=== PATIENT | male | born 1980 | race African-American/Black ===

== ENCOUNTER 2017-04-05 17:20 | Inpatient (IN) | payer SELFPAY ==
[2017-04-05] MEDS ORDERED: NORMAL SALINE 1000 ML 1,000 ML IV PRN (18:03)
[2017-04-05] MEDS ORDERED: ACETAMINOPHEN 325 MG TABLET PO ONE (18:06)
[2017-04-05] MEDS ORDERED: HYDROMORPHONE HCL INJ/PF 2 MG/ML AMPULE IV ONE ×2 (18:06→19:06)
[2017-04-05] MEDS ORDERED: ONDANSETRON HCL INJ/PF 4 MG/2 ML SDV IV ONE (18:06)
--- NOTE | 2017-04-05 18:07 | ER Document Report ---
ED Medical Screen (RME) - General Chief Complaint: Abdominal Pain Stated Complaint: ABDOMINAL PAIN Time Seen by Provider: 04/05/17 18:03 Mode of Arrival: Ambulatory Information source: Patient Notes: 37-year-old male presents with complaints of right lower quadrant abdominal pain fever nausea patient last ate at noon I have greeted and performed a rapid initial assessment of this patient. A comprehensive ED assessment and evaluation of the patient, analysis of test results and completion of the medical decision making process will be conducted by additional ED providers. PHYSICAL EXAMINATION: GENERAL: Febrile HEAD: Atraumatic, normocephalic. EYES: Pupils equal round extraocular movements intact, conjunctiva are normal. ENT: Nares patent NECK: Normal range of motion LUNGS: No respiratory distress Abdominal: Tender with guarding right lower quadrant Musculoskeletal: Normal range of motion NEUROLOGICAL: Normal speech, normal gait. PSYCH: Normal mood, normal affect. SKIN: Warm, Dry, normal turgor, no rashes or lesions noted. TRAVEL OUTSIDE OF THE [place] IN LAST 30 DAYS: No - Related Data Allergies/Adverse Reactions: No Known Allergies Allergy (Unverified 04/05/17 17:27) Past Medical History - Social History Frequency of alcohol use: None Drug Abuse: None Renal/ Medical History: Denies: Hx Peritoneal Dialysis Physical Exam - Vital signs Vitals: Temp Pulse Resp BP Pulse Ox 100.2 F 93 24 H 147/78 H 94 04/05/17 17:29 04/05/17 17:29 04/05/17 17:29 04/05/17 17:29 04/05/17 17:29 Course - Vital Signs Vital signs: Temp Pulse Resp BP Pulse Ox 100.2 F 93 24 H 147/78 H 94 04/05/17 17:29 04/05/17 17:29 04/05/17 17:29 04/05/17 17:29 04/05/17 17:29
[2017-04-05 18:40] LABS: ABSOLUTE MONOCYTES (AUTO) 0.8 10^3/uL (0.1-1.4); ABSOLUTE NEUT (AUTO) 11.4 10^3/uL (1.7-8.2); BASOPHILS % (AUTO) 0.2 % (0-2); EOSINOPHILS % (AUTO) 0.1 % (0-6); HEMATOCRIT 49.5 % (37.9-51.0); HEMOGLOBIN 16.6 g/dL (13.5-17.0); HGB HCT DIFFERENCE 0.3; LYMPHOCYTES % (AUTO) 7.8 % (13-45); MEAN CORPUSCULAR HEMOGLOBIN 27.5 pg (27.0-33.4); MEAN CORPUSCULAR HGB CONC 33.6 g/dL (32.0-36.0); MEAN CORPUSCULAR VOLUME 82 fl (80-97); MONOCYTES % (AUTO) 5.7 % (3-13); RED BLOOD COUNT 6.04 10^6/uL (4.35-5.55); RED CELL DISTRIBUTION WIDTH 15.9 % (11.5-14.0); SEGMENTED NEUTROPHILS % (AUTO) 86.2 % (42-78); WHITE BLOOD COUNT 13.2 10^3/uL (4.0-10.5)
[2017-04-05] MEDS: NORMAL SALINE 1000 ML 1,000 ML IV PRN ×2 (19:01→21:04)
[2017-04-05 19:02] LABS: ALANINE AMINOTRANSFERASE 29 U/L (21-72); ALBUMIN 4.7 g/dL (3.5-5.0); ALKALINE PHOSPHATASE 67 U/L (38-126); ANION GAP 13 (5-19); ASPARTATE AMINO TRANSFERASE 24 U/L (17-59); BILIRUBIN,DIRECT 0.6 mg/dL (0.0-0.4); BILIRUBIN,TOTAL 1.5 mg/dL (0.2-1.3); BLOOD UREA NITROGEN 12 mg/dL (7-20); CALCIUM 9.6 mg/dL (8.4-10.2); CARBON DIOXIDE 28 mmol/L (22-30); CHLORIDE 97 mmol/L (98-107); CREATININE RESULT 1.09 mg/dL (0.52-1.25); GLUCOSE 141 mg/dL (75-110); POTASSIUM 4.1 mmol/L (3.6-5.0); SODIUM 138.1 mmol/L (137-145)
[2017-04-05] MEDS ORDERED: AMPICILLIN SOD/SULBACTAM 3 GM VIAL IV ONE (19:19)
[2017-04-05 20:38] LABS: APPEARANCE,URINE CLEAR; BILIRUBIN,URINE NEGATIVE (NEGATIVE); GLUCOSE, URINE NEGATIVE (NEGATIVE); KETONES,URINE 20 mg/dL (NEGATIVE); LEUKOCYTE ESTERASE,URINE NEGATIVE (NEGATIVE); NITRITE,URINE NEGATIVE (NEGATIVE); PROTEIN,URINE NEGATIVE (NEGATIVE)
--- NOTE | 2017-04-05 21:48 | RADIOLOGY REPORT (SQ) ---
EXAM DESCRIPTION: CT ABD/PELVIS WITH IV ORAL COMPLETED DATE/TIME: 04/05/2017 9:04 pm REASON FOR STUDY: RLQ pin fever COMPARISON: None. TECHNIQUE: CT scan of the abdomen and pelvis performed using helical scanning technique with dynamic intravenous contrast injection and oral contrast. Images reviewed with lung, soft tissue, and bone w indows. Reconstructed coronal and sagittal MPR images reviewed. Delayed images for evaluation of the urinary system also acquired. All images stored on PACS. All CT scanners at this facility use dose modulation, iterative reconstruction, and/or weight based d osing when appropriate to reduce radiation dose to as low as reasonably achievable (ALARA). [facility]: Dose Right [facility]: CareDose [facility]: Dose Right [facility]: Teradose 4D [facility]: Appian CONTRAST TYPE AND DOSE: contrast/concentration: Isovue 370.00 mg/ml; Total Contrast Delivered: 100.0 ml; Total Saline Delivered: 45.0 ml RENAL FUNCTION: None required. The patient is less than 50 years old. RADIATION DOSE: Up-to-date CT equipment and radiation dose reduction techniques were employed. CTDIv ol: 29.6 - 30.0 mGy. DLP: 3734 mGy-cm.. LIMITATIONS: None. FINDINGS: LOWER CHEST: There is patchy airspace consolidation in the right lower lobe which could re present atelectatic changes or a basilar infiltrate. No pleural effusions are identified. LIVER: Normal size. No masses. No dilated ducts. SPLEEN: Normal size. No focal lesions. PANCREAS: No masses. No significant calcifications. No adjacent inflammation or peripancreatic fluid collections. Pancreatic duct not dilated. GALLBLADDER: No identified stones by CT criteria. No inflammatory changes to suggest cholecystitis. ADRENAL GLANDS: No significant masses or asymmetry. RIGHT KIDNEY AND URETER: No solid masses. No significant calcifications. No hydronephrosis or hyd roureter. LEFT KIDNEY AND URETER: No solid masses. No significant calcifications. No hydronephrosis or hydr oureter. AORTA AND VESSELS: No aneurysm. No dissection. Renal arteries, SMA, celiac without stenosis. RETROPERITONEUM: No retroperitoneal adenopathy, hemorrhage or masses. BOWEL AND PERITONEAL CAVITY: There are diffuse inflammatory changes in the right lower quadrant which extends medially and inferiorly into the pelvis. There is thickening of the ni of the terminal i leum as well as thickening of the ni of the adjacent sigmoid colon. There are enlarged mesenteric lymph nodes in right lower quadrant. APPENDIX: There is dilatation of the appendix with thickening of the ni of the appendix. PELVIS: No mass. No free fluid. Normal bladder. ABDOMINAL WALL: No masses. No hernias. BONES: No significant or acute findings. OTHER: No other significant finding. IMPRESSION: Diffuse inflammatory changes in the right lower quadrant as noted above which extends me dially and inferiorly into the pelvis. There is thickening of the ni of the terminal ileum as wel l as thickening of the ni of the adjacent sigmoid colon. There is dilatation of the appendix with thickening of the ni of the appendix. There are enlarged mesenteric lymph nodes in the right low er quadrant. The appearance is most consistent with an appendicitis with secondary involvement of th e terminal ileum and sigmoid colon however the possibility of a terminal ileitis with secondary invol vement of the appendix and sigmoid colon cannot be completely excluded. Clinical correlation is gem mmended. Other findings as noted above TECHNICAL DOCUMENTATION: JOB ID: [id number] Quality ID # [id number]: Final reports with documentation of one or more dose reduction techniques (e.g., Au tomated exposure control, adjustment of the mA and/or kV according to patient size, use of iterative reconstruction technique) 2010 [employer]- All Rights Reserved
--- NOTE | 2017-04-05 22:11 | ER Document Report ---
ED General - General Chief Complaint: Abdominal Pain Stated Complaint: ABDOMINAL PAIN Time Seen by Provider: 04/05/17 18:03 Mode of Arrival: Ambulatory TRAVEL OUTSIDE OF THE [place] IN LAST 30 DAYS: No - HPI Patient complains to provider of: Right lower quadrant abdominal pain Notes: Patient coming in for right lower quadrant abdominal pain ongoing for the last 3 days worse this afternoon. Patient states slight fever at home however no T- max was taken. Patient also states nausea vomiting no diarrhea last meal was at noon patient states he had chicken and pastry no difficulty eating. Denies any trauma denies any other past medical history. - Related Data Allergies/Adverse Reactions: No Known Allergies Allergy (Unverified 04/05/17 17:27) Past Medical History - General Information source: Patient - Social History Smoking Status: Never Smoker Frequency of alcohol use: None Drug Abuse: None Family History: Reviewed & Not Pertinent Patient has suicidal ideation: No Renal/ Medical History: Denies: Hx Peritoneal Dialysis Review of Systems - Review of Systems Constitutional: No symptoms reported EENT: No symptoms reported Cardiovascular: No symptoms reported Respiratory: No symptoms reported Gastrointestinal: Abdominal pain Genitourinary: No symptoms reported Male Genitourinary: No symptoms reported Musculoskeletal: No symptoms reported Skin: No symptoms reported Hematologic/Lymphatic: No symptoms reported Neurological/Psychological: No symptoms reported Physical Exam - Vital signs Vitals: Temp Pulse Resp BP Pulse Ox 100.2 F 93 24 H 147/78 H 94 04/05/17 17:29 04/05/17 17:29 04/05/17 17:29 04/05/17 17:29 04/05/17 17:29 Interpretation: Normal - General General appearance: Appears well, Alert - HEENT Head: Normocephalic, Atraumatic Eyes: Normal Pupils: PERRL - Respiratory Respiratory status: No respiratory distress Chest status: Nontender Breath sounds: Normal Chest palpation: Normal - Cardiovascular Rhythm: Regular Heart sounds: Normal auscultation Murmur: No - Abdominal Inspection: Normal Distension: No distension Bowel sounds: Normal Tenderness: Tender - Right lower quadrant tenderness moderate to palpation, McBurney's point, Guarding. No: Rebound Organomegaly: No organomegaly - Back Back: Normal, Nontender - Extremities General upper extremity: Normal inspection, Nontender, Normal color, Normal ROM , Normal temperature General lower extremity: Normal inspection, Nontender, Normal color, Normal ROM , Normal temperature, Normal weight bearing. No: Suzette's sign - Neurological Neuro grossly intact: Yes Cognition: Normal Orientation: AAOx4 [place] Coma Scale Eye Opening: Spontaneous [place] Coma Scale Verbal: Oriented [place] Coma Scale Motor: Obeys Commands [place] Coma Scale Total: 15 Speech: Normal Motor strength normal: LUE, RUE, LLE, RLE Sensory: Normal - Psychological Associated symptoms: Normal affect, Normal mood - Skin Skin Temperature: Warm Skin Moisture: Dry Skin Color: Normal Course - Re-evaluation Re-evalutation: 04/05/17 22:[address] scan returned showing signs of appendicitis. Also concern for terminal ileitis or inflammatory bowel disease process however patient symptoms started 3 days ago more consistent with acute appendicitis and local inflammation. The entire read of the CAT scan was given to the surgeon supervisor purification will admit the patient overnight plan is for surgery in the morning orders given over phone to charge nurse - Vital Signs Vital signs: Temp Pulse Resp BP Pulse Ox 100.2 F 93 24 H 147/78 H 94 04/05/17 17:29 04/05/17 17:29 04/05/17 17:29 04/05/17 17:29 04/05/17 17:29 - Laboratory Result Diagrams: 04/05/17 18:20 04/05/17 18:20 Laboratory results interpreted by me: 04/05/17 04/05/17 04/05/17 18:20 18:20 20:25 WBC 13.2 H RBC 6.04 H RDW 15.9 H Seg Neutrophils % 86.2 H Lymphocytes % 7.8 L Absolute Neutrophils 11.4 H Chloride 97 L Glucose 141 H Total Bilirubin 1.5 H Direct Bilirubin 0.6 H Urine Ketones 20 H Urine Urobilinogen 4.0 H Discharge - Discharge Clinical Impression: Appendicitis Qualifiers: Appendicitis type: acute appendicitis Acute appendicitis type: with localized peritonitis Qualified Code(s): K35.3 - Acute appendicitis with localized peritonitis Condition: Good Disposition: ADMITTED INPATIENT Admitting Provider: Surgicalist - [facility] Unit Admitted: Surgical Floor Referrals: LOCALMD,NO [Primary Care Provider] - Follow up as needed
[2017-04-05] MEDS ORDERED: AMPICILLIN SOD/SULBACTAM 3 GM VIAL IV PRN (22:25)
[2017-04-05] MEDS ORDERED: ACETAMINOPHEN 325 MG TABLET PO PRN (22:27)
[2017-04-05] MEDS ORDERED: MORPHINE SULFATE 10 MG/ML INJ INJ PRN (22:28)
[2017-04-05] MEDS: RINGERS SOLUTION,LACTATED 1,000 ML IV PRN (22:56)
[2017-04-05] MEDS: MORPHINE SULFATE 10 MG/ML INJ IV PRN (22:56)
[2017-04-05] MEDS: AMPICILLIN SODIUM/SULBACTAM NA 3 GM in NORMAL SALINE 100 ML IV SCH (23:46)
[2017-04-06] MEDS ORDERED: DEXTROSE 50%-WATER 25 GM/50 ML DISP.SYRIN IV PRN ×2 (00:38)
[2017-04-06] MEDS ORDERED: DEXTROSE 40% GEL 15 GM TUBE PO PRN ×2 (00:38)
[2017-04-06] MEDS ORDERED: GLUCAGON,HUMAN RECOMB 1 MG INJ SUBCUT PRN (00:38)
[2017-04-06] MEDS: MORPHINE SULFATE 10 MG/ML INJ IV PRN ×4 (02:03→21:04)
[2017-04-06] MEDS ORDERED: AMPICILLIN SOD/SULBACTAM 3 GM VIAL ONE (03:08)
[2017-04-06 04:48] LABS: HEMATOCRIT 43.7 % (37.9-51.0); HEMOGLOBIN 14.9 g/dL (13.5-17.0); MEAN CORPUSCULAR HEMOGLOBIN 27.8 pg (27.0-33.4); MEAN CORPUSCULAR HGB CONC 34.1 g/dL (32.0-36.0); MEAN CORPUSCULAR VOLUME 81 fl (80-97); RED BLOOD COUNT 5.38 10^6/uL (4.35-5.55); RED CELL DISTRIBUTION WIDTH 15.6 % (11.5-14.0); WHITE BLOOD COUNT 14.9 10^3/uL (4.0-10.5)
[2017-04-06] MEDS: AMPICILLIN SODIUM/SULBACTAM NA 3 GM in NORMAL SALINE 100 ML IV SCH ×4 (05:07→23:39)
--- NOTE | 2017-04-06 07:37 | PDOC H&P ---
History of Present Illness Admission Date/PCP: 04/05/17 22:14 Patient complains of: Abdominal pain History of Present Illness: ANGELA FOURNIER is a 37 year old male who presented to the ER last night with progressively worsening abdominal pain. This initially started on Wednesday and was recently in progressive worsening with associated fever lack of appetite became worrisome. Currently denying any fever chest pain shortness of breath nausea vomiting diarrhea. Patient's last bowel movement was Wednesday prior to the onset of symptoms. Patient's last oral intake was yesterday afternoon. ER workup revealed leukocytosis and CT findings consistent with acute appendicitis. Past Medical History Medical History: Other - HTN Pulmonary Medical History: Reports: None GI Medical History: Reports: None Psychiatric Medical History: Denies: Depression Past Surgical History Past Surgical History: Reports: Other - [place] tooth extraction Social History Information Source: Patient Lives with: Spouse/Significant other Smoking Status: Never Smoker Frequency of Alcohol Use: None Hx Recreational Drug Use: No Hx Prescription Drug Abuse: No Family History Family History: Reviewed & Not Pertinent Parental Family History Reviewed: Yes - Mother with HTN and DM Children Family History Reviewed: Yes Sibling(s) Family History Reviewed.: Yes Medication/Allergy Home Medications: No Home Medications 04/05/17 Allergies/Adverse Reactions: No Known Allergies Allergy (Unverified 04/05/17 17:27) Review of Systems Constitutional: ABSENT: chills, fever(s) - Noted elevated temp on admission none otherwise, headache(s), weight gain, weight loss Nose, Mouth, and Throat: ABSENT: sore throat Cardiovascular: ABSENT: chest pain, dyspnea on exertion Respiratory: ABSENT: cough, dyspnea Gastrointestinal: PRESENT: abdominal pain - RLQ focal. ABSENT: dysphagia, heartburn, melena, nausea, vomiting Genitourinary: PRESENT: dysuria - resolved after admission Neurological: ABSENT: abnormal gait, abnormal speech, confusion, dizziness, focal weakness, syncope Physical Exam Vital Signs: Temp Pulse Resp BP Pulse Ox 98.9 F 102 H 20 136/78 H 92 04/06/17 00:17 04/06/17 00:17 04/06/17 00:17 04/06/17 00:17 04/06/17 00:17 Intake & Output 04/05/17 04/06/17 04/07/17 06:59 06:59 06:59 Intake Total 705 Balance 705 General appearance: PRESENT: no acute distress, obese Head exam: PRESENT: atraumatic, normocephalic Eye exam: PRESENT: conjunctiva pink Mouth exam: PRESENT: moist, neck supple Neck exam: ABSENT: lymphadenopathy, thyromegaly, tracheal deviation Respiratory exam: PRESENT: clear to auscultation mamie Cardiovascular exam: PRESENT: RRR GI/Abdominal exam: PRESENT: guarding - Focal, tenderness - RLQ. ABSENT: diminished bowel sounds, distended, firm, hernia Extremities exam: PRESENT: full ROM. ABSENT: calf tenderness, clubbing, pedal edema Results Laboratory Results: 04/06/17 04:11 04/06/17 04:11 WBC 14.9 H RBC 5.38 Hgb 14.9 Hct 43.7 MCV 81 MCH 27.8 MCHC 34.1 RDW 15.6 H Plt Count 170 Impressions: Abdomen/Pelvis CT 04/05/17 00:00 IMPRESSION: Diffuse inflammatory changes in the right lower quadrant as noted above which extends medially and inferiorly into the pelvis. There is thickening of the ni of the terminal ileum as well as thickening of the ni of the adjacent sigmoid colon. There is dilatation of the appendix with thickening of the ni of the appendix. There are enlarged mesenteric lymph nodes in the right lower quadrant. The appearance is most consistent with an appendicitis with secondary involvement of the terminal ileum and sigmoid colon however the possibility of a terminal ileitis with secondary involvement of the appendix and sigmoid colon cannot be completely excluded. Clinical correlation is recommended. Other findings as noted above Assessment & Plan - Diagnosis (1) Appendicitis Qualifiers: Appendicitis type: acute appendicitis Acute appendicitis type: with localized peritonitis Qualified Code(s): K35.3 - Acute appendicitis with localized peritonitis Is this a current diagnosis for this admission?: Yes Plan: NPO OR for laparoscopic appendectomy Pain control Pulmonary toilet Resuscitate Continue IV antibiotics - improved symptoms
[2017-04-06] MEDS ORDERED: GLYCOPYRROLATE INJ 0.4 MG/2 ML VIAL ONE (07:43)
[2017-04-06] MEDS ORDERED: DEXAMETHASONE SOD PHOSPHATE INJ 4 MG/1 ML VIAL ONE (07:43)
[2017-04-06] MEDS ORDERED: SUCCINYLCHOLINE CHLORIDE INJ 200 MG/10 ML VIAL ONE (07:43)
[2017-04-06] MEDS ORDERED: ROCURONIUM BROMIDE INJ 50 MG/5 ML VIAL IV ONE (07:43)
[2017-04-06] MEDS ORDERED: LIDOCAINE 2% INJ-PF (20 MG/ML) 10 ML AMPUL ONE (07:43)
[2017-04-06] MEDS ORDERED: ONDANSETRON HCL INJ/PF 4 MG/2 ML SDV ONE (07:43)
[2017-04-06] MEDS ORDERED: NEOSTIGMINE METHYLSULFATE 10 MG/10 ML VIAL ONE (07:43)
[2017-04-06] MEDS ORDERED: METOCLOPRAMIDE HCL INJ/PF 10 MG/2 ML SDV ONE (07:43)
[2017-04-06] MEDS ORDERED: BUPIVACAINE HCL 0.25 % INJ/PF (2.5 MG/1 ML) 30 ML VIAL ONE (08:04)
[2017-04-06] MEDS ORDERED: LIDOCAINE 1%/EPINEPHRINE INJ 20 ML VIAL ONE (08:05)
[2017-04-06] MEDS: LANSOPRAZOLE 30 MG TAB.RAP.DR PO SCH (10:51)
[2017-04-06] MEDS: RINGERS SOLUTION,LACTATED 1,000 ML IV PRN (10:53)
[2017-04-06] MEDS ORDERED: FENTANYL CITRATE INJ/PF 100 MCG/2 ML AMPUL ONE ×2 (12:30)
[2017-04-06] MEDS ORDERED: MIDAZOLAM 2 MG/2 ML INJ ONE (12:30)
[2017-04-06] MEDS ORDERED: PROPOFOL INJ 200 MG/20 ML VIAL IV ONE (12:31)
[2017-04-06] MEDS ORDERED: IBUPROFEN INJ 800 MG/8 ML VIAL IV ONE (12:31)
[2017-04-06] MEDS ORDERED: HYDROMORPHONE HCL INJ/PF 2 MG/ML AMPULE ONE (12:31)
[2017-04-06] MEDS ORDERED: ACETAMINOPHEN 100 ML IV ONE (12:31)
[2017-04-06] MEDS ORDERED: FENTANYL CITRATE INJ/PF 100 MCG/2 ML AMPUL IV PRN ×3 (13:31)
[2017-04-06] MEDS ORDERED: DIPHENHYDRAMINE HCL 50 MG/ML VIAL IV PRN (13:31)
[2017-04-06] MEDS ORDERED: PROMETHAZINE HCL INJ 25 MG/1 ML VIAL IV PRN ×2 (13:31)
[2017-04-06] MEDS ORDERED: MEPERIDINE HCL/PF INJ 25 MG/1 ML DISP.SYRIN IV PRN (13:31)
[2017-04-06] MEDS ORDERED: MORPHINE SULFATE 10 MG/ML INJ IV PRN (13:31)
[2017-04-06] MEDS ORDERED: ONDANSETRON HCL INJ/PF 4 MG/2 ML SDV IV PRN (13:31)
[2017-04-06] MEDS ORDERED: OXYCODONE-ACETAMINOPHEN 5-325 MG TABLET PO PRN ×2 (13:31)
--- NOTE | 2017-04-06 14:45 | Operative Report ---
Operative Report DATE OF SURGERY: 04/06/17 Operative Report: Clinical indications: Mr. Moore is a 37-year-old male presents to the clinic with a 3 day history of abdominal pain progressively worsening warranting ER visit. ER workup revealed leukocytosis and CT findings generalized inflammation of the right lower quadrant with dilation of the appendix. Consent was obtained from the patient explained competitions risks and benefits of the procedure including but limited to bleeding infection need for operation to which he accepted. Procedure: Patient brought to the operative suite prior to second induction SCDs were placed and functional. Young catheter was placed to gravity the patient's head. He sterilely prepped in the usual manner. Access to his abdomen was via optical view trocar after Veress needle placement and pneumoperitoneum establishment. Prior to any incision local was instilled. NG tube had been placed to decompress the stomach prior to Veress needle placement. Pneumoperitoneum of 15 mmHg was established. Optical view trocar was used for insertion into the abdomen using a 0 scope. Visualization of the interabdominal contents noted significant gross peritonitis as well as purulent drainage. Subsequent trochars were placed a left lower quadrant 12 mm trocar 7 cm from initial trocar placement, an 11 cm trocar 7 cm from the prior trocar placement again left lower quadrant, a 5 mm suprapubic trocar all under direct visualization noting no injuries. Patient was placed in steep Trendelenburg and airplane left. Irrigation was done to clear after aspiration and culture was sent. Dissection of the area then ensued using Idalou dissection as well as blunt dissection obtaining critical view of the appendix and its base. Notable with visualization it was fragmented prior to its encounter and notable it had started to necrosis. Base of the appendix was intact at the colon which was amputated using a 45 mm DONALD blue load stapler. The remainder of the appendix was removed using white load DONALD staplers 45 mm multiple with removal of the appendiceal fragments from the abdominal cavity segmentally. At completion of removal of the appendiceal fragments irrigation was done until clear. 15 Macedonian round YAMILET drain was placed to the appendiceal inflammatory reaction. This was affixed to the skin and removed from the suprapubic skin site. There is affixed to the skin using 3-0 nylon stitch. Additional trocar was needed during the procedure secondary to significant inflammation and required additional retraction of the colon to allow visualization of the appendix. At this point trochars removed under direct visualization noting no bleeding pneumoperitoneum was insufflated bulb suction was placed to the YAMILET drain site after it was truncated. Sites were then reapproximated loosely using jose. Superficially dressings were placed using 2 x 2's and tape. Patient was awoke from anesthesia extubated and transported back to recovery in stable condition. PREOPERATIVE DIAGNOSIS: Acute appendicitis POSTOPERATIVE DIAGNOSIS: Supperative necrotic perforated appendicitis OPERATION: Laparoscopic appendectomy SURGEON: YANDY CARVAJAL ANESTHESIA: GA TISSUE REMOVED OR ALTERED: Appendix COMPLICATIONS: None ESTIMATED BLOOD LOSS: 20mls INTRAOPERATIVE FINDINGS: Perforated appendix. Generalized peritonitis. Purulence
[2017-04-06] MEDS: METRONIDAZOLE 500 MG/NS RTU 100 ML IV SCH (21:04)
[2017-04-06] MEDS: KETOROLAC TROMETHAMINE INJ/PF 30 MG/1 ML SDV IV SCH (23:39)
[2017-04-07] MEDS: MORPHINE SULFATE 10 MG/ML INJ IV PRN ×2 (04:25→20:55)
[2017-04-07] MEDS: AMPICILLIN SODIUM/SULBACTAM NA 3 GM in NORMAL SALINE 100 ML IV SCH ×3 (05:44→17:56)
[2017-04-07] MEDS: METRONIDAZOLE 500 MG/NS RTU 100 ML IV SCH ×3 (05:44→22:43)
[2017-04-07] MEDS: KETOROLAC TROMETHAMINE INJ/PF 30 MG/1 ML SDV IV SCH ×3 (05:45→17:55)
[2017-04-07] MEDS: LANSOPRAZOLE 30 MG TAB.RAP.DR PO SCH (09:44)
--- NOTE | 2017-04-07 15:19 | PDOC PROGRESS REPORT ---
Subjective Progress Note for:: 04/07/17 Subjective:: No events overnight Pain minimal / associated with incisions Tolerating cliq diet Hungry No flattus Physical Exam Vital Signs: Temp Pulse Resp BP Pulse Ox 98.5 F 77 16 134/88 H 95 04/07/17 12:00 04/07/17 12:00 04/07/17 12:00 04/07/17 12:00 04/07/17 12:00 Intake & Output 04/06/17 04/07/17 04/08/17 06:59 06:59 06:59 Intake Total 705 2470 Output Total 2495 Balance 705 -25 General appearance: PRESENT: no acute distress, obese Head exam: PRESENT: atraumatic, normocephalic Eye exam: PRESENT: conjunctiva pink Mouth exam: PRESENT: moist, neck supple Neck exam: ABSENT: lymphadenopathy, tenderness, thyromegaly, tracheal deviation GI/Abdominal exam: PRESENT: soft, tenderness - appropriate, other - YAMILET drain output c/w postoperative changes. ABSENT: distended, firm, hernia Extremities exam: PRESENT: full ROM. ABSENT: calf tenderness, clubbing, pedal edema Neurological exam: PRESENT: alert, awake, oriented to person, oriented to place , oriented to time, oriented to situation, CN II-XII grossly intact. ABSENT: motor sensory deficit Results Laboratory Results: 04/06/17 04:11 Impressions: Abdomen/Pelvis CT 04/05/17 00:00 IMPRESSION: Diffuse inflammatory changes in the right lower quadrant as noted above which extends medially and inferiorly into the pelvis. There is thickening of the ni of the terminal ileum as well as thickening of the ni of the adjacent sigmoid colon. There is dilatation of the appendix with thickening of the ni of the appendix. There are enlarged mesenteric lymph nodes in the right lower quadrant. The appearance is most consistent with an appendicitis with secondary involvement of the terminal ileum and sigmoid colon however the possibility of a terminal ileitis with secondary involvement of the appendix and sigmoid colon cannot be completely excluded. Clinical correlation is recommended. Other findings as noted above Assessment & Plan - Diagnosis (1) Appendicitis Qualifiers: Appendicitis type: acute appendicitis Acute appendicitis type: with localized peritonitis Qualified Code(s): K35.3 - Acute appendicitis with localized peritonitis Is this a current diagnosis for this admission?: Yes Plan: Maintain cliq diet Advance with return of Bowel function Pain control Pulmonary toilet With perforated appendicitis consider 10-14 days of oral antibiotics - Time Time Spent with patient: Less than 15 minutes Within: within 36 hours
[2017-04-07 17:11] LABS: ABSOLUTE EOSINOPHILS # (AUTO) 0.1 10^3/uL (0.0-0.6); ABSOLUTE LYMPHOCYTES (AUTO) 1.3 10^3/uL (0.5-4.7); ABSOLUTE MONOCYTES (AUTO) 0.8 10^3/uL (0.1-1.4); ABSOLUTE NEUT (AUTO) 10.5 10^3/uL (1.7-8.2); BASOPHILS % (AUTO) 0.2 % (0-2); EOSINOPHILS % (AUTO) 0.7 % (0-6); HEMATOCRIT 43.5 % (37.9-51.0); HEMOGLOBIN 14.8 g/dL (13.5-17.0); HGB HCT DIFFERENCE 0.9; LYMPHOCYTES % (AUTO) 10.1 % (13-45); MEAN CORPUSCULAR HEMOGLOBIN 27.8 pg (27.0-33.4); MEAN CORPUSCULAR HGB CONC 34.1 g/dL (32.0-36.0); MEAN CORPUSCULAR VOLUME 82 fl (80-97); RED BLOOD COUNT 5.34 10^6/uL (4.35-5.55); WHITE BLOOD COUNT 12.7 10^3/uL (4.0-10.5)
[2017-04-08] MEDS: KETOROLAC TROMETHAMINE INJ/PF 30 MG/1 ML SDV IV SCH ×4 (00:05→18:24)
[2017-04-08] MEDS: AMPICILLIN SODIUM/SULBACTAM NA 3 GM in NORMAL SALINE 100 ML IV SCH ×4 (00:05→18:24)
[2017-04-08] MEDS: MORPHINE SULFATE 10 MG/ML INJ IV PRN ×2 (04:24→21:47)
[2017-04-08] MEDS: METRONIDAZOLE 500 MG/NS RTU 100 ML IV SCH (05:51)
--- NOTE | 2017-04-08 08:16 | PDOC PROGRESS REPORT ---
Subjective Progress Note for:: 04/08/17 Subjective:: Feels better. Mild abdominal pain. Physical Exam Vital Signs: Temp Pulse Resp BP Pulse Ox 98.6 F 81 18 132/73 H 97 04/08/17 00:01 04/08/17 00:01 04/08/17 00:01 04/08/17 00:01 04/08/17 00:01 Intake & Output 04/07/17 04/08/17 04/09/17 06:59 06:59 06:59 Intake Total 2470 2790 Output Total 2495 2330 Balance -25 460 General appearance: PRESENT: no acute distress, cooperative Respiratory exam: PRESENT: clear to auscultation mamie Cardiovascular exam: PRESENT: RRR GI/Abdominal exam: PRESENT: other - Soft, nondistended, minimal lower abdominal tenderness. YAMILET drain with the slightly turbid output. Extremities exam: PRESENT: other - No swelling and no tenderness Results Laboratory Results: 04/07/17 16:55 04/07/17 16:55 WBC 12.7 H RBC 5.34 Hgb 14.8 Hct 43.5 MCV 82 MCH 27.8 MCHC 34.1 RDW 16.0 H Plt Count 227 Seg Neutrophils % 83.0 H Lymphocytes % 10.1 L Monocytes % 6.0 Eosinophils % 0.7 Basophils % 0.2 Absolute Neutrophils 10.5 H Absolute Lymphocytes 1.3 Absolute Monocytes 0.8 Absolute Eosinophils 0.1 Absolute Basophils 0.0 Impressions: Abdomen/Pelvis CT 04/05/17 00:00 IMPRESSION: Diffuse inflammatory changes in the right lower quadrant as noted above which extends medially and inferiorly into the pelvis. There is thickening of the ni of the terminal ileum as well as thickening of the ni of the adjacent sigmoid colon. There is dilatation of the appendix with thickening of the ni of the appendix. There are enlarged mesenteric lymph nodes in the right lower quadrant. The appearance is most consistent with an appendicitis with secondary involvement of the terminal ileum and sigmoid colon however the possibility of a terminal ileitis with secondary involvement of the appendix and sigmoid colon cannot be completely excluded. Clinical correlation is recommended. Other findings as noted above Assessment & Plan - Diagnosis (1) Appendicitis Qualifiers: Appendicitis type: acute appendicitis Acute appendicitis type: with localized peritonitis Qualified Code(s): K35.3 - Acute appendicitis with localized peritonitis Is this a current diagnosis for this admission?: Yes Plan: Status post laparoscopic appendectomy. Will continue IV antibiotics in light of his perforation and the turbid YAMILET drain output. Possible discharge patient home tomorrow with p.o. antibiotics. Advance diet.
[2017-04-08] MEDS: LANSOPRAZOLE 30 MG TAB.RAP.DR PO SCH (12:21)
[2017-04-08] MEDS: METRONIDAZOLE 500 MG TABLET PO SCH ×2 (15:38→21:47)
[2017-04-08 17:08] LABS: ABSOLUTE EOSINOPHILS # (AUTO) 0.3 10^3/uL (0.0-0.6); ABSOLUTE LYMPHOCYTES (AUTO) 1.4 10^3/uL (0.5-4.7); ABSOLUTE MONOCYTES (AUTO) 0.7 10^3/uL (0.1-1.4); ABSOLUTE NEUT (AUTO) 7.2 10^3/uL (1.7-8.2); BASOPHILS % (AUTO) 0.3 % (0-2); EOSINOPHILS % (AUTO) 3.2 % (0-6); HEMOGLOBIN 14.5 g/dL (13.5-17.0); HGB HCT DIFFERENCE 0.5; LYMPHOCYTES % (AUTO) 14.3 % (13-45); MEAN CORPUSCULAR HEMOGLOBIN 27.9 pg (27.0-33.4); MEAN CORPUSCULAR HGB CONC 33.8 g/dL (32.0-36.0); MEAN CORPUSCULAR VOLUME 82 fl (80-97); MONOCYTES % (AUTO) 7.7 % (3-13); RED BLOOD COUNT 5.22 10^6/uL (4.35-5.55); RED CELL DISTRIBUTION WIDTH 15.7 % (11.5-14.0); SEGMENTED NEUTROPHILS % (AUTO) 74.5 % (42-78); WHITE BLOOD COUNT 9.6 10^3/uL (4.0-10.5)
[2017-04-08] MEDS: RINGERS SOLUTION,LACTATED 1,000 ML IV PRN (21:51)
[2017-04-09] MEDS: KETOROLAC TROMETHAMINE INJ/PF 30 MG/1 ML SDV IV SCH ×2 (00:16→05:25)
[2017-04-09] MEDS: AMPICILLIN SODIUM/SULBACTAM NA 3 GM in NORMAL SALINE 100 ML IV SCH ×2 (00:17→05:25)
[2017-04-09 04:59] LABS: ABSOLUTE EOSINOPHILS # (AUTO) 0.4 10^3/uL (0.0-0.6); ABSOLUTE LYMPHOCYTES (AUTO) 1.4 10^3/uL (0.5-4.7); ABSOLUTE MONOCYTES (AUTO) 0.7 10^3/uL (0.1-1.4); BASOPHILS % (AUTO) 0.3 % (0-2); EOSINOPHILS % (AUTO) 4.4 % (0-6); HEMATOCRIT 39.5 % (37.9-51.0); HEMOGLOBIN 13.5 g/dL (13.5-17.0); LYMPHOCYTES % (AUTO) 16.8 % (13-45); MEAN CORPUSCULAR HEMOGLOBIN 27.9 pg (27.0-33.4); MEAN CORPUSCULAR HGB CONC 34.2 g/dL (32.0-36.0); MEAN CORPUSCULAR VOLUME 82 fl (80-97); MONOCYTES % (AUTO) 8.5 % (3-13); RED BLOOD COUNT 4.85 10^6/uL (4.35-5.55); RED CELL DISTRIBUTION WIDTH 15.6 % (11.5-14.0); WHITE BLOOD COUNT 8.5 10^3/uL (4.0-10.5)
[2017-04-09] MEDS: METRONIDAZOLE 500 MG TABLET PO SCH (05:25)
[2017-04-09 08:32] VITALS: BP 126/77
[2017-04-09] MEDS: LANSOPRAZOLE 30 MG TAB.RAP.DR PO SCH (09:56)
--- NOTE | 2017-04-09 23:33 | DISCHARGE SUMMARY E ---
Discharge Summary NAME: ANGELA FOURNIER : 1980 AGE: 37Y ADMITTED: 04/06/2017 DISCHARGED: 04/09/2017 PROCEDURE DONE: 04/06/2017 - Laparoscopic appendectomy with placement of a drain. SURGEON: Henry Ch DO HOSPITAL COURSE: This is a 37-year-old male with 3 days of abdominal pains. CAT scan showed acute appendicitis. The patient underwent laparoscopic appendectomy on 04/06/2017, where patient had a ruptured acute appendicitis. A drain was placed. The patient was started on IV antibiotics. On the day of discharge, the patient was able to tolerate a soft diet, was afebrile. White count normalized to 8.5. However, his drain still drained about 300 mL of slightly cloudy fluid in the past 24 hours. Because of the continued high drainage from the drain site, the patient was discharged on p.o. antibiotics. The patient advised and instructed how to remove the fluid from the drain and to record the drain. Patient to be followed up in the surgical clinic next week. Patient advised not to do any heavy lifting. 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 A note was given for him to go back to work around 04/23/2017 and to continue with p.o. Cipro and Flagyl for at least another week. DICTATING PHYSICIAN: PIPER REYES M.D. [id number] PHY#: [id number] ID: [id number] JOB#: [id number] ACCT: [id number] cc:Mike SCHOFIELD MD, M.D. [facility],
== END 2017-04-09 10:39 | disposition home or self-care (01) | DRG 339 ==
LOC: ER 17:20 → UNDOADMOB 22:14 → INTOOBSV 22:14 → EH 22:14 → 5 04-06 00:13 → EH 04-06 00:13 → 5 04-06 00:15 → ER 04-06 00:15 → OROUT 04-06 00:15 → UNDODISOB 04-09 10:39 → 5 04-09 10:39
PROVIDERS: ADMIT Surgery; ATTEND Surgery
PROC: 0DTJ4ZZ Resection of Appendix, Percutaneous Endoscopic Approach (ICD-10-PCS; principal; 2017-04-06 13:00)
DX: K35.2 Acute appendicitis with generalized peritonitis (principal); Z68.41 Body mass index [BMI] 40.0-44.9, adult; I10 Essential (primary) hypertension; E66.9 Obesity, unspecified
CPT/HCPCS: 36415; 74177; 80053; 81001; 840; 85025; 85027; 87070; 87075; 87077; 87186; 87205; 88304; 94799; 96361; 96365; 96375; 96376; 99285; J0131; J0295; J0330; J1100; J1170; J1741; J1885; J2250; J2270; J2405; J2704; J2765; J3010; J3490; J7030; J7120

== ENCOUNTER 2018-07-14 14:02 | Emergency (ER) | payer SELFPAY ==
[2018-07-14] MEDS ORDERED: IBUPROFEN 800 MG TABLET PO ONE (14:15)
--- NOTE | 2018-07-14 16:14 | ER Document Report ---
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 He does not have any other symptoms. Specifically, he denies any headache, sore throat, chest pain, abdominal pain, cough or chest congestion, any urinary tract symptoms. No diarrhea and vomited once when he got here to the hospital. Has never had anything like this happen before. Has had his appendix removed. On no medications. TRAVEL OUTSIDE OF THE [place] IN LAST 30 DAYS: No - Related Data Allergies/Adverse Reactions: No Known Allergies Allergy (Verified 07/14/18 16:01) Past Medical History - Social History Cigarette use (# per day): No Chew tobacco use (# tins/day): No Frequency of alcohol use: None Drug Abuse: None Family history: Reviewed & Not Pertinent Past Surgical History: Reports: Hx Appendectomy, Other - [place] tooth extraction - Immunizations History of Influenza Vaccine for 04/2017 - 09/2017 Season: No Review of Systems - Review of Systems Notes: REVIEW OF SYSTEMS: CONSTITUTIONAL : Patient not sure if he has a fever but he does complaining of chills. EENT: Denies eye, ear, nose or mouth or throat pain or other symptoms. CARDIOVASCULAR: Denies chest pain. RESPIRATORY: Denies cough, chest congestion, or shortness of breath. GASTROINTESTINAL: Denies abdominal pain or nausea, vomiting, or diarrhea. GENITOURINARY: Denies difficulty or painful urinating, urinary frequency, blood in urine. MUSCULOSKELETAL: Denies back or neck pain. Denies joint pain or swelling. SKIN: Denies rash or skin lesions. NEUROLOGICAL: Denies LOC or altered mental status. Denies headache. Denies sensory loss or motor deficits. ALL OTHER SYSTEMS REVIEWED AND NEGATIVE. Physical Exam - Vital signs Vitals: Temp Pulse Resp BP Pulse Ox 99.2 F 88 16 121/64 95 07/14/18 18:19 07/14/18 18:19 07/14/18 18:19 07/14/18 18:19 07/14/18 18:19 Interpretation: Normal Notes: PHYSICAL EXAMINATION: GENERAL: Well-appearing, in no acute distress. Temp 102.9. HEAD: Atraumatic, normocephalic. EYES: Pupils equal round and reactive to light, extraocular movements intact. ENT: oropharynx clear without exudates. Moist mucous membranes. NECK: Normal range of motion, supple. LUNGS: Breath sounds clear and equal bilaterally. HEART: Regular rate and rhythm without murmurs. ABDOMEN: Soft, nontender. No guarding or rebound. No masses. BACK: No tenderness throughout entire back. EXTREMITIES: Normal range of motion without pain. NEUROLOGICAL: Normal speech, normal gait. Normal sensory, motor, and reflex exams. Awake, alert, and oriented x3. Cranial nerves normal. PSYCH: Normal mood, normal affect. SKIN: Warm, dry, no rashes. Course - Re-evaluation Re-evalutation: 07/14/18 18:52 Patient feels fine. His temp has come down. Still has no sites of potential infection. His entire workup is essentially normal. I have ordered a culture of his urine. - Vital Signs Vital signs: Temp Pulse Resp BP Pulse Ox 99.2 F 88 16 121/64 95 07/14/18 18:19 07/14/18 18:19 07/14/18 18:19 07/14/18 18:19 07/14/18 18:19 - Laboratory Result Diagrams: 07/14/18 16:51 07/14/18 16:51 Laboratory results interpreted by me: 07/14/18 07/14/18 07/14/18 16:37 16:51 16:51 WBC 10.9 H RBC 5.76 H RDW 14.5 H Seg Neutrophils % 88.5 H Lymphocytes % 5.3 L Absolute Neutrophils 9.7 H Glucose 165 H POC Glucose Urine Protein 100 H Urine Glucose (UA) 50 H Urine Bilirubin SMALL H Urine Urobilinogen 2.0 H Urine Ascorbic Acid 40 H 07/14/18 18:24 WBC RBC RDW Seg Neutrophils % Lymphocytes % Absolute Neutrophils Glucose POC Glucose 171 H Urine Protein Urine Glucose (UA) Urine Bilirubin Urine Urobilinogen Urine Ascorbic Acid Doctor's Discharge - Discharge Clinical Impression: Fever, Viral illness Condition: Stable Disposition: HOME, SELF-CARE Additional Instructions: FEVER: Fever is the body's reaction to infection. Fever can also occur with illnesses that create fever-producing substances in the body. By itself, fever is not harmful. It helps the body fight invading germs. We are more concerned with: (1) What's causing the fever? (2) How can we keep you more comfortable until the fever goes away? Early in an illness, symptoms are often so vague that a diagnosis can't be made. If the doctor hasn't identified a clear cause for your fever, you will probably develop new symptoms within the next two days. Contact the doctor if you develop severe worsening headache, rash, chest pain, cough with yellow or green sputum, difficulty breathing, abdominal pain, or other new symptoms. There is no reason to treat a fever if you're comfortable. If the fever is causing aches, headache, and fatigue, you can treat it with ibuprofen (Advil, Nuprin, etc) or acetaminophen (Tylenol). Follow the directions on the bottle. Get plenty of liquids (three quarts per day). Rest. Physical work or sports will raise the temperature higher and make you feel much worse. Dress lightly. If you're chilling, this means the temperature is trying to go higher. Take ibuprofen or acetaminophen. When you feel sweaty and "feverish" the temperature is coming down. If the fever doesn't go away within two days or if you become more ill, call the doctor or return at once for re-examination. NORMAL EXAM AND WORKUP: At this time, with the exception of fever, your examination and workup show no significant abnormality. No significant abnormal physical findings were noted. All laboratory, EKG, and imaging (x-ray, CT scans, ultrasound) studies that were ordered show no significant abnormality. Although your examination and all studies that were ordered showed no significant abnormal finding, there are no examinations and no studies that are 100% accurate. There is always the possibility that some abnormality could exist and not be detected with physical examination or within the limits and capabilities of laboratory and other studies. You should return or follow up as you were instructed on your visit today for further evaluation if your symptoms do not resolve. VIRAL SYNDROME: The physician has diagnosed a likely viral infection. Viruses not only cau se "colds," but can cause many different symptoms including generalized aching, fever, headache, cough, diarrhea, nausea, vomiting, and fatigue. The treatment, for the most part, is simply relief of symptoms. This means that antibiotics are usually not given. Rest, fluids, pain medications and, occasionally, medication for the specific symptoms that are most bothersome will be prescribed. Use good handwashing to avoid passing the virus to others. Shared toys should be cleaned with disinfectant. Clean the toilets, sinks, and counter surfaces in bathrooms. Launder clothing in hot water. Contact the physician if you develop any new or unusual symptoms such as severe headache, stiff neck, high fever, chest pain, productive cough, or shortness of breath. You should be rechecked if you don't see marked improvement within seven to 10 days. USE OF ACETAMINOPHEN (Tylenol): Acetaminophen may be taken for pain relief or fever control. It's much safer than aspirin, offering a wider range of "safe" dosages. It is safe during . Some brand names are Tylenol, Panadol, Datril, Anacin 3, Tempra, and Liquiprin. Acetaminophen can be repeated every four hours. The following are maximum recommended dosages: WEIGHT Dose Drops Elixir Chewable(80mg) (LBS.) drprs=droppers tsp=teaspoon >89 pounds or adults 650 mg to 900 mg Acetaminophen can be repeated every four hours. Maximum dose not to exceed 4000 mg a day. These maximum recommended dosages are slightly higher than the dosages written on the product container, but these dosages are very safe and below the toxic dosage for acetaminophen. FOLLOW-UP CARE: If you have been referred to a physician for follow-up care, call the physicians office for an appointment as you were instructed or within the next two days. If you experience worsening or a significant change in your symptoms, notify the physician immediately or return to the Emergency Department at any time for re-evaluation. Return for reevaluation if you develop new or worsening symptoms of any sort. Drink plenty of fluids. Take Tylenol for fever. Forms: Return to Work
[2018-07-14 17:16] LABS: ABSOLUTE LYMPHOCYTES (AUTO) 0.6 10^3/uL (0.5-4.7); ABSOLUTE MONOCYTES (AUTO) 0.6 10^3/uL (0.1-1.4); ABSOLUTE NEUT (AUTO) 9.7 10^3/uL (1.7-8.2); BASOPHILS % (AUTO) 0.3 % (0-2); EOSINOPHILS % (AUTO) 0.1 % (0-6); HEMATOCRIT 47.3 % (37.9-51.0); HEMOGLOBIN 16.2 g/dL (13.5-17.0); LYMPHOCYTES % (AUTO) 5.3 % (13-45); MEAN CORPUSCULAR HEMOGLOBIN 28.2 pg (27.0-33.4); MEAN CORPUSCULAR HGB CONC 34.3 g/dL (32.0-36.0); MEAN CORPUSCULAR VOLUME 82 fl (80-97); MONOCYTES % (AUTO) 5.8 % (3-13); RED BLOOD COUNT 5.76 10^6/uL (4.35-5.55); RED CELL DISTRIBUTION WIDTH 14.5 % (11.5-14.0); SEGMENTED NEUTROPHILS % (AUTO) 88.5 % (42-78); TOTAL CELLS COUNTED % (AUTO) 100 %; WHITE BLOOD COUNT 10.9 10^3/uL (4.0-10.5)
[2018-07-14 17:31] LABS: APPEARANCE,URINE CLOUDY; BILIRUBIN,URINE SMALL (NEGATIVE); COLOR,URINE AMBER; GLUCOSE, URINE 50 mg/dL (NEGATIVE); KETONES,URINE NEGATIVE (NEGATIVE); LEUKOCYTE ESTERASE,URINE NEGATIVE (NEGATIVE); NITRITE,URINE NEGATIVE (NEGATIVE); PROTEIN,URINE 100 mg/dL (NEGATIVE)
[2018-07-14 17:33] LABS: ALANINE AMINOTRANSFERASE 29 U/L (21-72); ALBUMIN 4.6 g/dL (3.5-5.0); ALKALINE PHOSPHATASE 71 U/L (38-126); ANION GAP 10 (5-19); ASPARTATE AMINO TRANSFERASE 31 U/L (17-59); BILIRUBIN,DIRECT 0.2 mg/dL (0.0-0.4); BILIRUBIN,TOTAL 0.9 mg/dL (0.2-1.3); BLOOD UREA NITROGEN 17 mg/dL (7-20); CALCIUM 9.6 mg/dL (8.4-10.2); CARBON DIOXIDE 25 mmol/L (22-30); CHLORIDE 105 mmol/L (98-107); GLUCOSE 165 mg/dL (75-110); POTASSIUM 4.1 mmol/L (3.6-5.0); SODIUM 140.1 mmol/L (137-145); TOTAL PROTEIN 7.9 g/dL (6.3-8.2)
[2018-07-14 17:41] LABS: PLATELET COUNT 194 10^3/uL (150-450)
[2018-07-14 18:28] VITALS: BP 121/64
== END 2018-07-14 19:30 | disposition home or self-care (01) ==
LOC: ER 14:02
DX: B34.9 Viral infection, unspecified (principal); R50.9 Fever, unspecified
CPT/HCPCS: 36415; 80053; 81001; 82962; 85025; 87040; 87077; 87086; 87088; 87186; 99283

== ENCOUNTER 2018-07-14 22:00 | Emergency (ER) | payer SELFPAY ==
[2018-07-15] MEDS ORDERED: ACETAMINOPHEN 325 MG TABLET PO ONE (00:30)
--- NOTE | 2018-07-15 00:56 | ER Document Report ---
ED Fever - General Chief Complaint: Fever Stated Complaint: RECHECK FOR CHILLS,FEVER Time Seen by Provider: 07/15/18 00:29 TRAVEL OUTSIDE OF THE [place] IN LAST 30 DAYS: No - HPI Onset: This morning Quality of pain: No pain Severity: None Notes: Patient is a 38-year-old male that presents to the emergency department for chief complaint of fever. Patient states he started having a fever today. He is having sweats and chills. He denies any other symptoms. He states he was here earlier in the day and was given Motrin which resolved his fever. He states he was told to return to the emergency room if his fever returns. He denies any headache, neck pain, sinus congestion, cough, shortness of breath, abdominal pain, nausea, vomiting and diarrhea. Past Medical History: Negative Past Surgical History: Appendectomy Social History: Denies drugs alcohol and tobacco Family History: Reviewed and noncontributory for presenting illness Allergies: Reviewed, see documented allergy list. REVIEW OF SYSTEMS: CONSTITUTIONAL : fever No chills No diaphoresis No recent illness EENT: No vision changes No congestion No sore throat CARDIOVASCULAR: No chest pain No palpitations RESPIRATORY: No shortness of breath No cough No difficulty breathing GASTROINTESTINAL: No abdominal pain No nausea No vomiting No diarrhea GENITOURINARY: No dysuria No hematuria No difficulty urinating MUSCULOSKELETAL: No back pain No leg pain No arm pain SKIN: No rashes No lesions LYMPHATIC: No swollen, enlarged glands. NEUROLOGICAL: No lightheadedness No headache No weakness No paresthesias PSYCHIATRIC: No anxiety No depression PHYSICAL EXAMINATION: Vital signs reviewed, nursing noted reviewed. GENERAL: Mildly diaphoretic and in no acute distress. HEAD: Atraumatic, normocephalic. EYES: Eyes appear normal, extraocular movements intact, sclera anicteric, conjunctiva are normal. ENT: nares patent, oropharynx clear without exudates. Moist mucous membranes. NECK: Normal range of motion, supple without lymphadenopathy LUNGS: Breath sounds clear to auscultation bilaterally and equal. No wheezes rales or rhonchi. HEART: Regular rate and rhythm without murmurs ABDOMEN: Soft, nontender, normoactive bowel sounds. No rebound, guarding, or rigidity. No masses appreciated. EXTREMITIES: Nontender, good range of motion, no pitting or edema. NEUROLOGICAL: No focal neurological deficits. Moves all extremities spontaneously Motor and sensory grossly intact on exam. PSYCH: Normal mood, normal affect. SKIN: Warm, Dry, normal turgor, no rashes or lesions noted on exposed skin - Related Data Allergies/Adverse Reactions: No Known Allergies Allergy (Verified 07/14/18 16:01) Past Medical History - Social History Smoking Status: Never Smoker Family History: Reviewed & Not Pertinent Renal/ Medical History: Denies: Hx Peritoneal Dialysis Psychiatric Medical History: Denies: Hx Depression Past Surgical History: Reports: Hx Appendectomy, Other - [place] tooth extraction Physical Exam - Vital signs Vitals: Temp Pulse Resp BP Pulse Ox 101.1 F H 113 H 24 H 134/69 H 92 07/14/18 22:25 07/14/18 22:25 07/14/18 22:25 07/14/18 22:25 07/14/18 22:25 Course - Re-evaluation Re-evalutation: 07/15/18 00:55 Vitals reviewed. Nursing notes reviewed. Patient is febrile and given Tylenol for his fever. He has no headache or signs of meningitis. Patient not complaining of abdominal issues and has a benign abdominal exam. I do not feel lab work is indicated. Influenza and chest x-ray will be obtained. 07/15/18 01:44 After treatment patient's fever has resolved. He is negative for influenza. His chest x-ray is negative. I reviewed his workup from earlier which he did not inform he was performed. It showed no urinary tract infection and was otherwise unremarkable. Patient was told to continue taking ibuprofen and Tylenol at home as needed for fevers. He was counseled on oral hydration. He will follow with primary care for reevaluation in the next few days. Laboratory 07/15/18 00:55 Influenza A (Rapid) NEGATIVE Influenza B (Rapid) NEGATIVE Chest X-Ray 07/15/18 00:31 IMPRESSION: Elevation of the right hemidiaphragm with right basilar atelectasis - Vital Signs Vital signs: Temp Pulse Resp BP Pulse Ox 99.1 F 113 H 24 H 134/69 H 92 07/15/18 01:34 07/14/18 22:25 07/14/18 22:25 07/14/18 22:25 07/14/18 22:25 Discharge - Discharge Clinical Impression: Chills Fever Qualifiers: Fever type: unspecified Qualified Code(s): R50.9 - Fever, unspecified Condition: Stable Disposition: HOME, SELF-CARE Instructions: Fever (OM), Acetaminophen, Viral Syndrome (OM), Family Physicians / Practices Additional Instructions: Please return to the emergency department if you have any worsening, or concern of your symptoms. Please return to the emergency department if you develop chest pain, difficulty breathing, severe abdominal pain, or ongoing vomiting. Please follow-up with your primary care physician in 2-3 days and any other recommended physicians. If prescribed, take all medications as directed. If you have any questions or concerns do not hesitate to return the emergency department for evaluation. Take ibuprofen and Tylenol at home as directed on the label for fever and chills Drink lots of water to prevent dehydration Follow with primary care for reevaluation as directed Referrals: [facility] [Provider Group] - Follow up in 3-5 days
--- NOTE | 2018-07-15 01:06 | RADIOLOGY REPORT (SQ) ---
EXAM DESCRIPTION: XR CHEST 1 VIEW COMPLETED DATE/TME: 07/15/2018 00:31 CLINICAL HISTORY: 38 years Male cough COMPARISON: None. FINDINGS: The cardiomediastinal silhouette appears unremarkable. No consolidating infiltrates or pleural effusions. No pneumothorax. Elevated right hemidiaphragm. Right basilar atelectasis similar to the previous CT examination. IMPRESSION: Elevation of the right hemidiaphragm with right basilar atelectasis
[2018-07-15 01:31] LABS: A TYPE INFLUENZA AG NEGATIVE (NEGATIVE); B INFLUENZA AG NEGATIVE (NEGATIVE)
[2018-07-15 02:03] VITALS: BP 127/71
== END 2018-07-15 02:03 | disposition home or self-care (01) ==
LOC: ER 22:00
DX: R50.9 Fever, unspecified (principal); J98.11 Atelectasis
CPT/HCPCS: 71045; 87804; 99284

== ENCOUNTER 2018-07-15 11:33 | Emergency (ER) | payer SELFPAY ==
[2018-07-15] MEDS ORDERED: CEFTRIAXONE INJ 1000 MG VIAL IV ONE (11:57)
--- NOTE | 2018-07-15 13:11 | ER Document Report ---
ED Medical Screen (RME) - General Chief Complaint: Abnormal Lab Results Stated Complaint: ABDORMAL LABS Time Seen by Provider: 07/15/18 11:56 Notes: Patient was called back to the emergency department today to receive antibiotics for a positive blood culture drawn when he was seen here yesterday. See that chart as well as another chart when the patient came back in last night because he was feeling bad again. His entire workup was essentially normal. He had no sore throat, no headache, no significant chest congestion and no cough, no abdominal pains, no vomiting or diarrhea, no urinary tract symptoms, negative flu test and essentially all labs negative At this time, 1 of the blood cultures is growing out gram-negative rods. The other blood culture is still negative. Patient's urine culture is negative. He said he feels better today. I have called him back to receive 2 g of Rocephin IV and then a week of Keflex 500 mg 4 times a day. TRAVEL OUTSIDE OF THE [place] IN LAST 30 DAYS: No - Related Data Allergies/Adverse Reactions: No Known Allergies Allergy (Verified 07/15/18 11:34) Past Medical History - Social History Chew tobacco use (# tins/day): No Frequency of alcohol use: None Drug Abuse: None Family history: Reviewed & Not Pertinent Renal/ Medical History: Denies: Hx Peritoneal Dialysis Psychiatric Medical History: Denies: Hx Depression Past Surgical History: Reports: Hx Appendectomy, Other - [place] tooth extraction - Immunizations History of Influenza Vaccine for 04/2017 - 09/2017 Season: No Physical Exam - Vital signs Vitals: Temp Pulse Resp BP Pulse Ox 97.5 F 88 16 131/65 H 95 07/15/18 11:46 07/15/18 11:46 07/15/18 11:46 07/15/18 11:46 07/15/18 11:46 Course - Vital Signs Vital signs: Temp Pulse Resp BP Pulse Ox 98.2 F 85 18 128/82 H 97 07/15/18 13:23 07/15/18 13:23 07/15/18 13:23 07/15/18 13:23 07/15/18 13:23 Doctor's Discharge - Discharge Clinical Impression: Positive blood culture Condition: Stable Disposition: HOME, SELF-CARE Additional Instructions: Positive blood culture 1 of the blood cultures drawn yesterday has shown a bacteria growing in that culture. It likely is the cause of your fever that she had yesterday. We still do not know exactly where that bacteria came from and how I got into your system. However, customarily, patients with this condition are treated with antibiotics to be sure that the bacteria are eradicated in your body. You have been given an injection of Rocephin. Rocephin You have been given an injection of an antibiotic called Rocephin (ceftriaxone). Sometimes the injection must be combined with antibiotic pills. For some infections, such as an uncomplicated ear infection, Rocephin provides all the antibiotic that's needed. The antibiotic will be in your body for about two days. For serious infections, we usually repeat doses of Rocephin daily. Side effects are very unusual following a shot. Women may develop vaginal yeast infections, and babies can get yeast (thrush) in the mouth following the use of antibiotics. Contact your physician if you have symptoms with this medication. Allergy to this antibiotic can result in hives, wheezing, faintness, or itching. If symptoms of allergy occur, call the doctor at once. In addition, you have been given a prescription for 1 weeks treatment with Keflex, also called cephalexin.. Take these pills until they are completely gone and throw away the empty bottle. Cephalexin The antibiotic you've been prescribed is a member of the cephalosporin class. This type of antibiotic covers a wide variety of infections, including those of the skin, lungs, and urinary tract. It's useful for staph infections. This antibiotic is slightly similar to the penicillin family. In rare cases, a person who is allergic to penicillin will also be allergic to this medication. If you have had a severe allergic reaction to penicillin, and have not taken this antibiotic since that time, notify your doctor. Antibiotics which cover many germs ("broad spectrum" antibiotics) are more likely to cause diarrhea or "yeast" infections. Women prone to vaginal yeast problems may suffer an attack after taking this antibiotic. In infants, oral thrush (white spots "stuck" on the cheek) or yeast diaper rash may result. See your doctor if these problems occur. Call at once if you develop itching, hives, shortness of breath, or lightheadedness. FOLLOW-UP CARE: If you have been referred to a physician for follow-up care, call the physicians office for an appointment as you were instructed or within the next two days. If you experience worsening or a significant change in your symptoms, notify the physician immediately or return to the Emergency Department at any t [place] for re-evaluation. If you begin to run high fevers again, or other new and different symptoms, return for us to reevaluate at any time. Prescriptions: Cephalexin Monohydrate [Keflex 500 mg Capsule] 500 mg PO QID 7 Days #28 capsule Referrals: [facility] [Primary Care Provider] - Follow up as needed
[2018-07-15 13:38] VITALS: BP 128/82
== END 2018-07-15 13:23 | disposition home or self-care (01) ==
LOC: ER 11:33
DX: R78.81 Bacteremia (principal)
CPT/HCPCS: 96365; 99283; J0696